=== PATIENT | female | born 1980 | race Caucasian/White ===

== ENCOUNTER 2024-03-19 18:33 | Emergency (ER) | payer OTHER ==
[~2024-03-19] VITALS: Ht 165.1 cm; Wt 75.0 kg
[~2024-03-19 18:33] MED LIST: LISI-186 PO
[2024-03-19 18:41] VITALS: O2SAT 99
[2024-03-19] MEDS ORDERED: LIDOCAINE HCL/PF 1% 10 MG/ML 5ML VIAL INFIL ONE (23:00)
[2024-03-19] MEDS ORDERED: T3 PO (23:49)
[2024-03-19] MEDS ORDERED: IBUP-2029 MT (23:51)
[2024-03-19] MEDS ORDERED: AMOX1TAB16 MT (23:51)
[2024-03-19] MEDS: BACITRACIN ZINC OINT UDPKT TOP ONE (23:58)
[2024-03-19] MEDS: TETANUS, DIPHTHERIA, PERTUSSIS VAC/PF 0.5ML (>10YR OLD) IM ONE (23:59)
[2024-03-20 01:09] VITALS: BP 136/84; PULSE 80; RESP 18; TEMP 36.78072; O2SAT 98
== END 2024-03-20 01:10 | disposition home or self-care (01) ==
LOC: ER 18:33
DX: S61.217A Laceration without foreign body of left little finger without damage to nail, initial encounter (principal); I10 Essential (primary) hypertension; Z90.49 Acquired absence of other specified parts of digestive tract; Z79.899 Other long term (current) drug therapy; Z98.890 Other specified postprocedural states; W54.0XXA Bitten by dog, initial encounter; Y93.89 Activity, other specified; Y92.89 Other specified places as the place of occurrence of the external cause; Y99.8 Other external cause status
CPT/HCPCS: 99283; 73140; 90715; 12002; 90471; J3490